=== PATIENT | female | born 1985 | race Asian ===

== ENCOUNTER → 2018-02-23 08:57 | Outpatient (CLI) | payer MEDICAID, SELFPAY ==
[2018-02-23 14:17] LABS: Hematocrit 35.6 % (37-47); Hemoglobin 11.9 g/dl (12.0-15.0); Mean Corp Hgb Conc 33.4 g/gl (32-36); Mean Corpuscular Hgb 30.5 pg (27.0-32.0); Mean Corpuscular Volume 91.3 fL (81-99); Platelet Count 194 K/mm3 (150-450); RBC Distribution Width CV 13.7 % (11.6-14.6); RBC Distribution Width SD 45.1 fl (35.1-43.9); White Blood Count 11.1 K/mm3 (4.4-11.0)
[2018-02-23 14:22] LABS: Scan Indicated on CBC? Y/N NO
[2018-02-23 14:32] LABS: AST(SGOT) 15 U/L (15-37); Alanine Aminotransfer ALT/SGPT 21 U/L (13-56); Albumin, Serum 2.9 g/dL (3.2-5.0); Alkaline Phosphatase 53 U/L (45-117); Bilirubin, Direct 0.08 mg/dL (0.00-0.30); Glucose Challenge Gest 1H 50g 137 mg/dL (70-140); Protein, Total 6.9 g/dL (6.4-8.2)
== END ==
PROVIDERS: Visit Provider Obstetrics & Gynecology
DX: O98.419 Viral hepatitis complicating pregnancy, unspecified trimester (principal); B19.9 Unspecified viral hepatitis without hepatic coma; Z3A.00 Weeks of gestation of pregnancy not specified
CPT/HCPCS: 36415; 80076; 82950; 85027

== ENCOUNTER → 2018-04-05 11:00 | Outpatient (CLI) | payer MEDICAID, SELFPAY ==
--- OUTSIDE RECORDS SUMMARY | 2018-06-10 06:57 | XMS RPT_ITS ---
:1985 Author Organization OH[facility] Care Team Providers Name Role Phone SealMarcello arreguin Attending Unavailable Seals, Marcello Attending Unavailable PROBLEMS PROBLEMS DATE TYPE CONDITION / CODE ATTENDING STATUS SOURCE 04/05/2018 Unknown Z36.85 - Encounter SealMarcello arreguin for [facility] screening for Hospital Streptococcus B / Repository Z36.85(ICD-10) 02/24/2018 Unknown Z34.83 - Encounter SealsMarcello for supervision of [facility] other normal Hospital , third Repository trimester / Z34.83(ICD-10) 02/24/2018 Unknown O98.42 - Viral SealsMarcello hepatitis [facility] complicating Hospital childbirth / Repository O98.42(ICD-10) PROCEDURES PROCEDURES No Procedure Records FoundRESULTS RESULTS Observed: 04/05/2018 Status: F Source: UHMBERTO CULTURE, GROUP B 9:00 AM [facility] STREPTOCOCCUS REPOSITORY Comments: VAGINAL/RECTAL CONRADO Culture Group B Beta Streptococcus is not isolated. Performed By: #### M100.1800 #### [facility] [address] [place], [address] CBC-COMPLETE BLOOD CNT Collected: 02/23/2018 Status: F Source: HUMBERTO NO DIFF 9:12 AM [facility] REPOSITORY TYPE CODE TESTS RESULT OUT OF RANGE REFERENCE UNITS LAB L100.1000 4.4-11.0 K/mm3 High WBC 11.1 LAB L100.1200 4.2-5.4 M/mm3 Low RBC 3.90 LAB L100.1300 12.0-15.0 g/dl Low HGB 11.9 LAB L100.1400 37-47 % Low HCT 35.6 LAB L100.1500 81-99 fL Normal MCV 91.3 LAB L100.1600 27.0-32.0 pg Normal MCH 30.5 LAB L100.1700 32-36 g/gl Normal MCHC 33.4 LAB L100.1810 11.6-14.6 % Normal RDW CV 13.7 LAB L100.1820 35.1-43.9 fl High RDW SD 45.1 LAB L100.1900 150-450 K/mm3 Normal PLT 194 LAB L100.2000 6.2-12.0 fl Normal MPV 10.0 Performed By: #### L100.0500 #### [facility] [address] [place], [place], [id number] LIVER PROFILE Collected: 02/23/2018 Status: F Source: HUMBERTO 9:12 AM [facility] REPOSITORY TYPE CODE TESTS RESULT OUT OF RANGE REFERENCE UNITS LAB L501.1500 6.4-8.2 g/dL Normal T PROT 6.9 LAB L501.1800 3.2-5.0 g/dL Low ALB 2.9 LAB L501.1950 2.2-4.2 g/dL Normal GLOB 4.0 LAB L501.4100 15-37 U/L Normal AST 15 LAB L501.4305 45-117 U/L Normal ALK P 53 LAB L501.4405 13-56 U/L Normal ALT 21 LAB L501.4600 0.20-1.00 mg/dL Normal T BILI 0.20 LAB L501.4700 0.00-0.30 mg/dL Normal D BILI 0.08 Performed By: #### L500.3400, L501.0250 #### [facility] [address] [place], [place], [address] GLUCOSE CHALLENGE GEST Collected: 02/23/2018 Status: F Source: HUMBERTO 1H 50G 9:12 AM [facility] REPOSITORY TYPE CODE TESTS RESULT OUT OF RANGE REFERENCE UNITS LAB L501.0250 70-140 mg/dL Normal GLU GEST 137 50g 1H Performed By: #### L500.3400, L501.0250 #### [facility] [address] [place], [address] ALLERGIES ALLERGIES No Allergies Records FoundENCOUNTERS ENCOUNTERS ADMIT/DISCHARGE ACCOUNT ADMITTING ENCOUNTER LOCATION SOURCE NUMBER CLASS 04/05/2018 [id number] Ambulatory [place] [facility] ing:LABSPEC Repository 02/23/2018 [id number] Ambulatory [place] [facility] [facility] ing:WOBLAB Repository PAYERS PAYERS ENCOUNTER GUARANTOR PAYER SUBSCRIBER SOURCE 04/05/2018 [facility] Primary [facility] H[place]to [id number] Insurance:PARAMOUNT DUONGDOB: [facility] [id number] Number: Repository [id number]: [id number] [phone] () Date:[id number] [address] [address]DP: 04/05/2018 Secondary NOT GIVENUNK [place] Insurance:SELF PAY [facility] Number: Effective Repository Date:2018-04-05 02/23/2018 [facility] Primary [facility] [place] [id number] Insurance:PARAMOUNT DUONGDOB: [facility] [id number] Number: Repository [address]Njc: [id number] () Date:[id number] [address] [address]XV: 02/23/2018 Secondary NOT GIVENUNK [place] Insurance:SELF PAY [facility] Number: Effective Repository Date:2018-02-23
== END ==
PROVIDERS: Visit Provider Obstetrics & Gynecology
DX: Z36.85 Encounter for antenatal screening for Streptococcus B (principal)
CPT/HCPCS: 87081

== ENCOUNTER 2018-05-14 00:32 | Inpatient (IN) | payer OTHER, MEDICAID, SELFPAY ==
[2018-05-14] MEDS: Lactated Ringers 1,000 ML 50 ML IV ×4 (01:00→22:10)
[2018-05-14 01:06] VITALS: BMI 38.3
[2018-05-14 01:25] LABS: Hemoglobin 12.9 g/dl (12.0-15.0); Mean Corp Hgb Conc 33.1 g/gl (32-36); Mean Corpuscular Hgb 29.8 pg (27.0-32.0); Mean Corpuscular Volume 90.1 fL (81-99); Mean Platelet Vol. 10.1 fl (6.2-12.0); Platelet Count 194 K/mm3 (150-450); RBC Distribution Width CV 14.3 % (11.6-14.6); RBC Distribution Width SD 47.3 fl (35.1-43.9); Red Blood Count 4.33 M/mm3 (4.2-5.4); White Blood Count 12.1 K/mm3 (4.4-11.0)
[2018-05-14 01:27] LABS: Scan Indicated on CBC? Y/N NO
[2018-05-14] MEDS: Nalbuphine 10 MG/ML Ampul IV ×2 (02:30→12:50)
[2018-05-14] MEDS: Ondansetron 4 MG/2 ML Vial IV (08:20)
[2018-05-14] MEDS: Oxytocin 30 units/NS 500 ml 30 UNITS/500 ML IV.SOLN IV (17:00)
[2018-05-14] MEDS: Acetaminophen 325 MG Tablet PO (19:32)
[2018-05-14] MEDS: fentaNYL-bupivacaine (epidural) 100 ML BAG EPIDURAL (23:17)
[2018-05-15] VITALS (27 sets, daily range): BP systolic 90–122; BP diastolic 46–65; PULSE 79–116; RESP 15–20; TEMP 35.6–36.5; O2SAT 95–99
[2018-05-15] MEDS: Lactated Ringers 1,000 ML 50 ML IV (00:25)
[2018-05-15] MEDS: Ondansetron 4 MG/2 ML Vial IV (00:26)
[2018-05-15] MEDS: Sodium Citrate/Citric Acid 30 ML UDC PO (02:08)
[2018-05-15] MEDS: Cefazolin 2 GM in 0.9% Normal Saline 100 ML IV (02:15)
[2018-05-15] MEDS: Oxytocin 30 units/NS 500 ml 30 UNITS/500 ML IV.SOLN 167 UNITS IV (02:38)
--- NOTE | 2018-05-15 03:31 | PCM.OPRPT ---
Report of Operation Date of Procedure: 05/15/18 Pre-Operative Diagnosis: Failure to Progress and Increasing Stress Post-Operative Diagnosis: Failure to Progress and Increasing Stress Surgery/Procedure Performed:: Primary Low Transverse Cervical Section Description of Surgical Findings:: Viable male infant with Apgars of 8/9 and an occiput anterior presentation with clear amniotic fluid and normal three-vessel placenta weighing 8 pounds and 12 ounces. Head poorly engaged in the pelvis. open tenter operator: Bharat Santillan Type of Anesthesia:: Epidural - With Duramorph Anesthesiologist: Yomaira Meredith Specimen's removed: [facility] to [facility] Drains: Duncan to straight drain Estimated Blood Loss (mL): 750 cc Fluids Replaced: Crystalloid Description of Procedure: Surgeon: Foreign Demarco MD, FACOG Indication: This is a 32-year-old who presents in active labor at 40+ weeks gestation. care has otherwise been uneventful. She progressed to 7-8 cm with intrauterine pressure catheter in place showing adequate contractions. Despite adequate contractions she failed to progress past 7 cm over an extended period of approximately 8 hours. It was decided to proceed with section when late decelerations and decreased variability ensued. The patient has been counseled regarding the risk and indications of this procedure including the possibility of bleeding infection and injury to surrounding structures such as bowel bladder. All questions were answered. Procedure: Patient was taken to the operating room where after spinal anesthesia was placed, the patient was prepped and draped in usual sterile fashion and a Duncan catheter was placed. The abdomen was entered through a Pfannenstiel incision and peritoneum was entered bluntly. After developing a bladder flap on the lower uterine segment a low transverse incision was made on the uterus and head was easily delivered onto the operative field the nose mouth and oropharynx were bulb suctioned. Subsequently a viable male infant was born with Apgars of 8/9. The was noted to cry move all extremities vigorously on the operative field. The umbilical cord was doubly clamped and ligated and handed to the nursery personnel who were present for the delivery. Placenta was delivered and noted to be 3 vessels and normal. Uterus was exteriorized and remaining placental tissue was removed. The uterus was then closed in 2 layers first with running locked 0 Vicryl suture followed by a second imbricating layer with 0 Vicryl suture. 0 Vicryl suture was then used in a horizontal mattress interrupted fashion to affect final hemostasis of the uterine incision line. Normal fallopian tubes and ovaries were visualized and the uterus was returned to the pelvis. Hemostasis was noted and rectus abdominis muscles were reapproximated in the midline with interrupted Number 0 Vicryl suture in a horizontal mattress fashion. Fascia was closed with running Number 1 PDS Strata fix suture. Subcutaneous tissue was irrigated with copious amouts of saline solution and then closed with running 3-0 Vicryl suture. Skin was closed with 4-0 monocryl suture in a running subcuticular fashion. Steri strips, telfa, and tape were placed across the incision. The patient tolerated the procedure well and was taken to the recovery room in satisfactory condition. Sponge, needle, and instrument counts were all reportedly correct. EBL was 750 cc. Ancef 2 gms IV was given prior to the procedure. Spicemen to Pathology: None Grafts/Implants Used: None - Complications None - Admit VTE Documentation VTE Present on Admission: Yes VTE Mechan Device Prophylaxis: SCD's
--- NOTE | 2018-05-15 03:39 | OP.PCM_ITS ---
Report of Operation Date of Procedure: 05/15/18 Pre-Operative Diagnosis: Failure to Progress and Increasing Stress Post-Operative Diagnosis: Failure to Progress and Increasing Stress Surgery/Procedure Performed:: Primary Low Transverse Cervical Section Description of Surgical Findings:: Viable male infant with Apgars of 8/9 and an occiput anterior presentation with clear amniotic fluid and normal three-vessel placenta weighing 8 pounds and 12 ounces. Head poorly engaged in the pelvis. opener tender: Bharat Santillan Type of Anesthesia:: Epidural - With Duramorph Anesthesiologist: Yomaira Meredith Specimen's removed: [facility]a to [facility] Drains: Duncan to straight drain Estimated Blood Loss (mL): 750 cc Fluids Replaced: Crystalloid Description of Procedure: Surgeon: Foreign Demarco MD, FACOG Indication: This is a 32-year-old who presents in active labor at 40+ weeks gestation. care has otherwise been uneventful. She progressed to 7-8 cm with intrauterine pressure catheter in place showing adequate contractions. Despite adequate contractions she failed to progress past 7 cm over an extended period of approximately 8 hours. It was decided to proceed with section when late decelerations and decreased variability ensued. The patient has been counseled regarding the risk and indications of this procedure including the possibility of bleeding infection and injury to surrounding s tructures such as bowel bladder. All questions were answered. Procedure: Patient was taken to the operating room where after spinal anesthesia was placed, the patient was prepped and draped in usual sterile fashion and a Duncan catheter was placed. The abdomen was entered through a Pfannenstiel incision and peritoneum was entered bluntly. After developing a bladder flap on the lower uterine segment a low transverse incision was made on the uterus and head was easily delivered onto the operative field the nose mouth and oropharynx were bulb suctioned. Subsequently a viable male was born with Apgars of 8/9. The infant was noted to cry move all extremities vigorously on the operative field. The umbilical cord was doubly clamped and ligated and handed to the nursery personnel who were present for the delivery. Placenta was delivered and noted to be 3 vessels and normal. Uterus was exteriorized and remaining placental tissue was removed. The uterus was then closed in 2 layers first with running locked 0 Vicryl suture followed by a second imbricating layer with 0 Vicryl suture. 0 Vicryl suture was then used in a horizontal mattress interrupted fashion to affect final hemostasis of the uterine incision line. Normal fallopian tubes and ovaries were visualized and the uterus was returned to the pelvis. Hemostasis was noted and rectus abdominis muscles were reapproximated in the midline with interrupted Number 0 Vicryl suture in a horizontal mattress fashion. Fascia was closed with running Number 1 PDS Strata fix suture. Subcutaneous tissue was irrigated with copious amouts of saline solution and then closed with running 3-0 Vicryl suture. Skin was closed with 4-0 monocryl suture in a running subcuticular fashion. Steri strips, telfa, and tape were placed across the incision. The patient tolerated the procedure well and was taken to the recovery room in satisfactory condition. Sponge, needle, and instrument counts were all reportedly correct. EBL was 750 cc. Ancef 2 gms IV was given prior to the procedure. Spicemen to Pathology: None Grafts/Implants Used: None - Complications None - Admit VTE Documentation VTE Present on Admission: Yes VTE Mechan Device Prophylaxis: SCD's
--- NOTE | 2018-05-15 03:40 | DCINST_ITS ---
Discharge Diet: No Restrictions Discharge Activity: May not drive while taking narcotic pain medications., May Shower, May Take a Tub Bath May resume sexual activity in: 4-6 weeks Lifting Restrictions: 20 pounds Additional Activity Instructions:: Nothing in the vagina for 4-6 weeks. You may return to work/school in 6 weeks. Call your doctor if your incision/area has: Continuous Slow Oozing, Sudden Increased Bleeding, Increased Pain/ Swelling, Increased Redness, Foul Smelling Discharge Call your doctor if you observe: Fever of 101 or Higher, Inability to urinate, Inability to have a bowel movement, Using more than one pad per hour Additional Instructions: If you experience any of the following, contact your healthcare provider. * Bleeding that soaks a pad every hour for 2 hours * Fever 100.4 or higher * Unrelieved incision or abdominal pain * Swelling, redness, discharge or bleeding from your incision or episiotomy site * Your incision begins to separate * Problems urinating (including inability to urinate or burning while urinating). * Visual changes * Severe headache * Flu-like symptoms * Pain or redness in one of both of your breasts * Pain, warmth, tenderness or swelling in your legs, especially the calf area * Frequent nausea and vomiting * Symptoms of depression or anxiety If you experience any of the following, call 911 or go to the nearest Emergency Room. * Chest pain * Problems breathing * Seizure activity * Partial or complete paralysis of a body part, slurred speech, weakness or drooping of the face, or a sudden inability to walk or hold your balance Allergies/Adverse Reactions: Allergies No Known Allergies Allergy (Verified 05/14/18 01:07) Medications to take at Discharge Vit No.130/Iron/Folic [ Tablet] 1 tab PO DAILY 05/14/18 Docusate Sodium [Colace] 100 mg PO BID PRN PRN #60 cap 05/15/18 Oxycodone [Oxyir] 5 mg PO Q6H PRN PRN 7 Days #20 tab 05/15/18 The following prescriptions were given: Oxycodone [Oxyir] 5 mg PO Q6H PRN PRN 7 Days #20 tab PRN Reason: Severe Pain (6-12/28) Docusate Sodium [Colace] 100 mg PO BID PRN PRN #60 cap PRN Reason: Constipation Follow-Up: Call to make an appointment with your doctor for an incision check in 1-2 weeks. You will also need a 6 week post- follow up appointment. Test results from this visit will be discussed in further detail at your follow- up appointment, if applicable. Please Follow Up With: Marcello Hinkle MD - [phone] When: Call to make an appointment for an incision check in 2 weeks.
[2018-05-15] MEDS: Lactated Ringers 1,000 ML 100 ML IV ×2 (03:45→11:11)
--- NOTE | 2018-05-15 07:47 | NURSING ---
@ 0600 epidural catheter removed and blue tip intact
[2018-05-15] MEDS: Ketorolac 30 MG/ML Syringe IV ×3 (08:00→20:38)
[2018-05-15] MEDS: Bisacodyl 10 MG Suppository RECTAL (08:00)
[2018-05-15] MEDS: Cefazolin 1 GM/50 ML BAG IV ×2 (11:10→18:10)
--- NOTE | 2018-05-15 12:41 | NURSING ---
SN assessment reviewed and agree with clinical findings.
[2018-05-15] MEDS: 0.9% Saline Lock 10 ML Syringe IV (15:25)
[2018-05-16] MEDS: Ketorolac 30 MG/ML Syringe IV ×4 (02:49→20:38)
[2018-05-16] MEDS: 0.9% Saline Lock 10 ML Syringe IV ×2 (02:49→20:38)
[2018-05-16 02:53] VITALS: BP 116/65; PULSE 95; RESP 16; TEMP 36.7; O2SAT 98
[2018-05-16 04:32] LABS: Hematocrit 31.3 % (37-47); Hemoglobin 10.1 g/dl (12.0-15.0); Mean Corp Hgb Conc 32.3 g/gl (32-36); Mean Corpuscular Volume 92.9 fL (81-99); Mean Platelet Vol. 9.5 fl (6.2-12.0); Platelet Count 162 K/mm3 (150-450); RBC Distribution Width CV 14.2 % (11.6-14.6); RBC Distribution Width SD 46.7 fl (35.1-43.9); Red Blood Count 3.37 M/mm3 (4.2-5.4); White Blood Count 13.3 K/mm3 (4.4-11.0)
[2018-05-16 04:33] LABS: Scan Indicated on CBC? Y/N NO
--- NOTE | 2018-05-16 08:22 | PCM.PN.OB ---
Subjective: No specific complaints. Breast feeding. Bleeding light. Pain reasonably controlled. Objective: Afeb VSS. Hgb appropriate for post op day#1. - Physical Exam General: Alert, Oriented x3, Cooperative, No apparent distress Lungs: Clear to auscultation, Normal air movement Cardiovascular: Regular rate, Regular Rhythm Abdomen: Soft, Non Tender, Non-Distended, - - Incision dressing dry Skin: No rashes Neurological: Neuro grossly intact Psych/Mental Status: Normal Affect Comment: Lochia light Vital Signs Temp Pulse Resp BP Pulse Ox 98.0 F 95 16 116/65 98 05/16/18 02:53 05/16/18 02:53 05/16/18 02:53 05/16/18 02:53 05/16/18 02:53 Oxygen Delivery Method Room Air Weight: 244 lb 11.41 oz Body Mass Index (BMI) 38.3 Intake and Output for Last 24 Hours 05/14/18 05/15/18 05/16/18 23:59 23:59 23:59 Intake Total 2280 / 2280 6799 / 6799 Output Total 1800 / 1800 2300 / 2300 400 / 400 Balance 480 / 480 4499 / 4499 -400 / -400 Laboratory Tests Past 24 Hrs 05/16/18 04:23 WBC 13.3 H RBC 3.37 L Hgb 10.1 L Hct 31.3 L MCV 92.9 MCH 30.0 MCHC 32.3 RDW 14.2 RDW Differential 46.7 H Plt Count 162 MPV 9.5 Medical Necessity - Tobacco Use Smoking Status: Never smoker Assessment/Plan Doing well on POD#1. continue routine PO care. Anticipate discharge home tomorrow.
[2018-05-16] MEDS: oxyCODONE 5 MG Tablet PO (08:52)
[2018-05-16 08:55] VITALS: BP 110/64; PULSE 74; RESP 16; TEMP 36.3; O2SAT 98
[2018-05-16 14:00] VITALS: BP 106/58; PULSE 83; RESP 16; TEMP 36.3; O2SAT 96
[2018-05-16 20:09] VITALS: BP 121/70; PULSE 96; RESP 18; TEMP 36.6; O2SAT 100
[2018-05-16] MEDS: Ibuprofen 600 MG Tablet PO (22:26)
[2018-05-17 02:50] VITALS: BP 100/55; PULSE 90; RESP 16; TEMP 36.3
[2018-05-17] MEDS: oxyCODONE 5 MG Tablet PO ×2 (07:38→19:36)
[2018-05-17 07:50] VITALS: BP 142/86; PULSE 94; RESP 16; TEMP 36.8; O2SAT 96
--- NOTE | 2018-05-17 08:49 | PCM.PN.OB ---
Subjective: Somewhat emotional this morning due to baby having elevated bilirubin levels. No other complaints. Pain reasonably controlled, bleeding light, breast feeding. Objective: Afeb VSS - Physical Exam General: Alert, Oriented x3, Cooperative, No apparent distress Lungs: Clear to auscultation, Normal air movement Cardiovascular: Regular rate, Regular Rhythm Abdomen: Soft, Non Tender, Non-Distended, - - Incision dressing dry, intact, no erythema Extremities: No edema Neurological: Neuro grossly intact Psych/Mental Status: Normal Affect Vital Signs Temp Pulse Resp BP Pulse Ox 98.3 F 94 16 142/86 H 96 05/17/18 07:50 05/17/18 07:50 05/17/18 07:50 05/17/18 07:50 05/17/18 07:50 Oxygen Delivery Method Room Air Weight: 244 lb 11.41 oz Body Mass Index (BMI) 38.3 Intake and Output for Last 24 Hours 05/15/18 05/16/18 05/17/18 23:59 23:59 23:59 Intake Total 6799 / 6799 Output Total 2300 / 2300 400 / 400 Balance 4499 / 4499 -400 / -400 Medical Necessity - Tobacco Use Smoking Status: Never smoker Assessment/Plan Doing well from post operative standpoint. Will hold discharge until tomorrow as baby now under UV lights to reduce bilirubin levels.
[2018-05-17] MEDS: Ibuprofen 600 MG Tablet PO ×2 (12:14→21:28)
[2018-05-17 14:40] VITALS: BP 122/74; PULSE 89; RESP 16; TEMP 36.6; O2SAT 98
--- NOTE | 2018-05-17 15:39 | NURSING ---
RN assisted with @ 1430, patient very tearful she states she would like to give baby a bottle but will still continue to breastfeed. RN educated patient on benefits of , patient still requesting bottle with nipple. Nursery RN updated glassworker on plan. Plan per patient discussion with RN is for patient to continue putting baby to breast and pumping but will supplement if she does not feel that baby is doing well.
[2018-05-17 19:35] VITALS: BP 106/59; PULSE 103; RESP 18; TEMP 36.6; O2SAT 97
--- NOTE | 2018-05-17 21:39 | NURSING ---
huddle form completed on prior shift. pt stated that she doesn't want to actually breast feed and latch with infant tonight at all. she wants to solely pump bilateral breasts, give colostrum, and also give formula afterward. pt encouraged to latch infant in hopes of maintaining an effective breast feeding pattern. will continue to educate mother and answer any questions her and her spouse may have. no further needs at this time.
[2018-05-18] MEDS: oxyCODONE 5 MG Tablet PO ×2 (01:43→13:43)
[2018-05-18 01:50] VITALS: BP 111/61; PULSE 92; RESP 18; TEMP 36.3
[2018-05-18 07:15] VITALS: BP 140/80; PULSE 92; RESP 16; TEMP 36.6; O2SAT 97
[2018-05-18] MEDS: DiphenhydrAMINE 25 MG Capsule PO ×2 (07:15→08:46)
[2018-05-18 07:17] VITALS: BP 129/85
[2018-05-18 07:45] VITALS: BP 116/72
--- NOTE | 2018-05-18 07:47 | NURSING ---
pt called this RN at 0657 and stated that she had a swollen tongue. this RN immediately went to pt room to assess pt. tongue was red and inflamed only on right side. pt was able to swallow properly and respirations were WNL. no airway constriction, shortness of breath, or difficulty breathing noted. when pt appeared stable, this RN informed charge nurse and spoke with Dr. Hinkle regarding a verbal order for PO benadryl. MEG Burnett who was getting report for this pt immediately went to room to administer benadryl when received from pharmacy. vitals obtained. pt has no further complaints. doctor aware of symptoms, along with charge nurse. will continue to monitor vital signs and symptoms per day shift nurse Hortencia Simental
--- NOTE | 2018-05-18 07:54 | NURSING ---
0715 Pt states she does not know why her tongue is swollen on the right side, denies pain or headache, tongue does not deviate right or left. bp obtained 140/80 l arm. pt given the benadryl 25mg po. bp retaken 116/72 heart rate remains steady at 92 and pulse ox noted 97%. hand grasp are equal, no deficiets noted. pt has no other c/o.
[2018-05-18 08:45] VITALS: BP 116/69; PULSE 92; RESP 16; TEMP 36.6; O2SAT 97
[2018-05-18] MEDS: Ibuprofen 600 MG Tablet PO (11:12)
--- NOTE | 2018-05-18 12:01 | PCM.PN.OB ---
Subjective: Having some swelling of the right side of her tongue but now is much improved after eating ice. Glands in neck are mildly swollen. Bleeding is light. Pumping breast milk. Pain well controlled. Objective: Afeb VSS - Physical Exam General: Alert, Oriented x3, Cooperative, No apparent distress Lungs: Clear to auscultation, Normal air movement Cardiovascular: Regular rate, Regular Rhythm Abdomen: Soft, Non Tender, Non-Distended, - - Incision C/D/I Extremities: No edema Skin: No rashes Neurological: Neuro grossly intact Psych/Mental Status: Normal Affect Comment: Lochia light Vital Signs Temp Pulse Resp BP Pulse Ox 97.9 F 92 16 116/69 97 05/18/18 08:45 05/18/18 08:45 05/18/18 08:45 05/18/18 08:45 05/18/18 08:45 Oxygen Delivery Method Room Air Weight: 244 lb 11.41 oz Body Mass Index (BMI) 38.3 Intake and Output for Last 24 Hours 05/16/18 05/17/18 05/18/18 23:59 23:59 23:59 Output Total 400 / 400 Balance -400 / -400 Medical Necessity - Tobacco Use Smoking Status: Never smoker Assessment/Plan Doing well on POD#3. Unsure etiology for tongue swelling. Home going instructions and warnings given. Will discharge home today.
[2018-05-18 12:05] VITALS: BP 106/63; PULSE 90; RESP 16; TEMP 36.8; O2SAT 95
--- NOTE | 2018-05-18 12:06 | PCM.DC.SUM ---
Discharge Date and Diagnosis Date of Admission: 05/14/18 Date of Discharge: 05/18/18 - Primary Discharge Diagnosis Arrest of dilation. S/P primary C/S. Hospital Course and Treatment Consultations 05/14/18 00:59 Consult: Anesthesia Routine Comment: Reason For Exam: LABOR Operations: - - Primary low transverse section Summary of Care Provided: The patient is a 32 year old F [admitted in active labor at term. Progressed with pitocin augmentation to 7 centimeters dilated but had arrest of dilation at that point. She was taken for a primary section which was performed by Dr. Demarco without complication. She made a unremarkable recovery and was discharged home on POD#3. - Physical Exam General: Alert, Oriented x3, Cooperative, No apparent distress Lungs: Clear to auscultation, Normal air movement Cardiovascular: Regular rate, Regular Rhythm Abdomen: Soft, Non Tender, Non-Distended, - - Incision C/D/I Extremities: No edema Skin: No rashes Vital Signs Temp Pulse Resp BP Pulse Ox 97.9 F 92 16 116/69 97 05/18/18 08:45 05/18/18 08:45 05/18/18 08:45 05/18/18 08:45 05/18/18 08:45 Oxygen Delivery Method Room Air Weight: 244 lb 11.41 oz Body Mass Index (BMI) 38.3 Intake and Output for Last 24 Hours 05/16/18 05/17/18 05/18/18 23:59 23:59 23:59 Output Total 400 / 400 Balance -400 / -400 Discharge Diet: No Restrictions Discharge Activity: Return to Normal Activity, May not drive while taking narcotic pain medications., May Shower, May Take a Tub Bath Return to work on:: 07/17/18 May shower in (days): 0 May resume sexual activity in: 4-6 weeks Additional Activity Instructions:: Nothing in the vagina for 4-6 weeks. You may return to work/school in 6 weeks. Call your doctor if your incision/area has: Continuous Slow Oozing, Sudden Increased Bleeding, Increased Pain/ Swelling, Increased Redness, Foul Smelling Discharge Call your doctor if you observe: Fever of 101 or Higher, Inability to urinate, Inability to have a bowel movement, Using more than one pad per hour, Shortness of breath, Chest pain, Calf discomfort, Uncontrolled pain Cleanse incision/area with: Soap & Water Home Medications: Medications to take at Discharge Vit No.130/Iron/Folic [ Tablet] 1 tab PO DAILY 05/14/18 Docusate Sodium [Colace] 100 mg PO BID PRN PRN #60 cap 05/15/18 Oxycodone [Oxyir] 5 mg PO Q6H PRN PRN 7 Days #20 tab 05/15/18 Ibuprofen 600 mg PO 4X/DAY #30 tab 05/18/18 Following Prescrptions Were Given to Patient: Oxycodone [Oxyir] 5 mg PO Q6H PRN PRN 7 Days #20 tab PRN Reason: Severe Pain (6-12/28) Docusate Sodium [Colace] 100 mg PO BID PRN PRN #60 cap PRN Reason: Constipation Ibuprofen 600 mg PO 4X/DAY #30 tab Please Follow Up With: Marcello Hinkle MD - [phone] When: Call to make an appointment for an incision check in 2 weeks. Medical Necessity - Tobacco Use Smoking Status: Never smoker Meaningful Use Info Meaningful Use Diagnoses (Choose all that apply): None applicable
--- NOTE | 2018-05-18 13:53 | NURSING ---
1230 in to see the pt, states she is ok to dc to home. 1350 pt dc to home with family and her baby
== END 2018-05-18 13:40 | disposition home or self-care (01) | DRG 540 ==
PROVIDERS: Admitting Provider Obstetrics & Gynecology; Referring Provider Obstetrics & Gynecology; Visit Provider Obstetrics & Gynecology
DX: O48.0 Post-term pregnancy (principal); Z3A.40 40 weeks gestation of pregnancy; O98.42 Viral hepatitis complicating childbirth; B19.10 Unspecified viral hepatitis B without hepatic coma; O62.1 Secondary uterine inertia; Z37.0 Single live birth
CPT/HCPCS: 59025; 59050; 85027; 86850; 86900; 99218; J7120; A4216; G0378; J2405

== ENCOUNTER → 2018-06-27 | Outpatient (CLI) | payer MEDICAID, SELFPAY ==
[2018-06-27 14:07] LABS: hCG Titer Quant., Serum < 1 mIU/mL (<9 non-preg)
[2018-06-27 14:09] LABS: Progesterone Level 0.07 ng/mL (See Comment)
== END | disposition home or self-care (01) ==
LOC: WOBLAB 10:19
PROVIDERS: Visit Provider Obstetrics & Gynecology
DX: Z30.014 Encounter for initial prescription of intrauterine contraceptive device (principal)
CPT/HCPCS: 36415; 84144; 84702

== ENCOUNTER → 2018-06-30 | Outpatient (CLI) | payer OTHER, MEDICAID, SELFPAY ==
[2018-06-30 18:21] LABS: Chlamydia Trachomatis by PCR Negative (Negative); Neisserai gonorrhoeae by PCR Negative (Negative); Probe Check PASS; Sample Adequacy Control PASS; Specimen Processing Control PASS
== END | disposition home or self-care (01) ==
LOC: LABSPEC 13:54
PROVIDERS: Visit Provider Obstetrics & Gynecology
DX: Z11.3 Encounter for screening for infections with a predominantly sexual mode of transmission (principal)
CPT/HCPCS: 87491; 87591

== ENCOUNTER → 2018-07-25 | Outpatient (CLI) | payer SELFPAY ==
[2018-07-28 11:41] LABS: HPV HC, High Risk Negative (Negative)
== END | disposition home or self-care (01) ==
PROVIDERS: Visit Provider Obstetrics & Gynecology
DX: Z12.4 Encounter for screening for malignant neoplasm of cervix (principal)
CPT/HCPCS: 87624; 88175; G0145